=== PATIENT | male | born 1990 | race Native Hawaiian/Other Pacific Islander ===

== ENCOUNTER 2016-09-29 13:42 | Emergency (ER) | payer OTHER ==
[~2016-09-29] VITALS: Ht 188 cm; Wt 99.8 kg
[2016-09-29 14:38] LABS: URINE BILIRUBIN NEGATIVE (Negative); URINE BLOOD NEGATIVE (Negative); URINE COLOR YELLOW; URINE GLUCOSE-RANDOM* NEGATIVE (Negative); URINE KETONES NEGATIVE (Negative); URINE NITRITE NEGATIVE (Negative); URINE PROTEIN (DIPSTICK) NEGATIVE (Negative); URINE SPECIFIC GRAVITY <= 1.005 (1.003-1.035); URINE UROBILINOGEN 0.2 E.U./dl (0.2-1.0)
[2016-09-29] MEDS ORDERED: VENTOLIN HFA 1818 GM INH (14:46)
[2016-09-29 14:52] LABS: MCH 28.9 pg (26.0-34.0); MCHC 33.7 g/dL (28.0-37.0); MCV 85.7 fL (80.0-100.0); RBC 2.17 mil/uL (4.50-6.00); RDW 14.7 % (10.5-14.5)
[2016-09-29 14:56] LABS: MANUAL DIFF YES; WBC 1.9 thou/uL (4.0-11.0)
[2016-09-29 14:57] LABS: HEMATOCRIT 18.6 % (42.0-52.0); HEMOGLOBIN 6.3 gm/dL (14.0-18.0); PLATELET COUNT 71 thou/uL (150-400)
[2016-09-29 14:58] LABS: CALCIUM 7.3 mg/dL (8.5-10.1); CREATININE 0.8 mg/dL (0.7-1.3); POTASSIUM 3.1 mmol/L (3.5-5.1)
[2016-09-29 15:04] LABS: ALBUMIN 3.4 g/dL (3.4-5.0); TOTAL BILIRUBIN 0.4 mg/dL (<0.1-1.0); TOTAL PROTEIN 6.6 g/dL (6.4-8.2)
[2016-09-29 15:15] LABS: ABSOLUTE NEUTROPHILS 2.8 thou/uL (1.4-8.2); BASOPHILS 1.1 % (0.0-2.0); HEMATOCRIT 41.9 % (42.0-52.0); LYMPHOCYTES 29.8 % (24.0-44.0); MCH 28.4 pg (26.0-34.0); MCHC 33.8 g/dL (28.0-37.0); MONOCYTES 7.3 % (1.0-8.0); POLYS 57.8 % (36.0-66.0); RBC 4.99 mil/uL (4.50-6.00); WBC 4.8 thou/uL (4.0-11.0)
[2016-09-29 15:16] LABS: HEMOGLOBIN 14.2 gm/dL (14.0-18.0); MANUAL DIFF NO; PLATELET COUNT 163 thou/uL (150-400)
[2016-09-29 15:32] LABS: TOTAL CELL COUNT 100
[2016-09-29 15:33] LABS: ABSOLUTE NEUTROPHILS 1.2 thou/uL (1.4-8.2)
[2016-09-29] MEDS ORDERED: PHENERGAN 25 MG25 M1 PO (15:40)
[2016-09-29] MEDS ORDERED: AMOXICILLIN 50500 MG PO (15:41)
[2016-09-29 16:10] VITALS: BP 124/76
== END 2016-09-29 15:43 | disposition home or self-care (01) ==
LOC: ER 13:42
PROVIDERS: Nurse Practitioner Family
DX: R11.2 Nausea with vomiting, unspecified (principal); K04.7 Periapical abscess without sinus; J06.9 Acute upper respiratory infection, unspecified; E87.6 Hypokalemia; F10.99 Alcohol use, unspecified with unspecified alcohol-induced disorder

== ENCOUNTER 2017-07-11 17:39 | Emergency (ER) | payer OTHER ==
[~2017-07-11] VITALS: Ht 190.5 cm; Wt 117.9 kg
--- NOTE | ~2017-07-11 | EKG ---
[address] [address] [facility] [place] [address] ELECTROCARDIOGRAM REPORT Name: GEETAGUEVARA Room #: REG DEWAYNE Browne#: [id number] Admission: 07/11/17 Attend Phys: Discharge: Date of : 89 Report #: [id number] THIS REPORT FOR: //name// [facility] ED Test Date: 2017-07-11 Test Time: 19:56:50 Pat Name: GUEVARA CONNOR Department: Room: Gender: Funeral Attendant: [id number] : 1990 Requested By: Tamika Maria Order Number: [id number] MD: Mark Matute Measurements Intervals [place] Rate: 61 P: 25 OR: 148 QRS: 46 QRSD: 98 T: 14 QT: 421 QTc: 424 Interpretive Statements Sinus rhythm ST elev, probable normal early repol pattern No previous ECG available for comparison Electronically Signed On 07-11-2017 22:01:23 CDT by Mark Matute [email or web address] <ELECTRONICALLY SIGNED> By: Mark Matute MD 07/11/172200 55 55 Mark Matute MD /MATY
[~2017-07-11 17:39] MED LIST: AMOXICILLIN 50500 MG PO; PHENERGAN 25 MG25 M1 PO; VENTOLIN HFA 1818 GM INH
[2017-07-11 19:49] LABS: ABSOLUTE NEUTROPHILS 5.3 thou/uL (1.4-8.2); EOSINOPHILS 2.8 % (0.0-3.0); HEMATOCRIT 44.2 % (42.0-52.0); HEMOGLOBIN 15.3 gm/dL (14.0-18.0); LYMPHOCYTES 23.5 % (24.0-44.0); MCH 30.2 pg (26.0-34.0); MCHC 34.6 g/dL (28.0-37.0); MCV 87.4 fL (80.0-100.0); MONOCYTES 8.5 % (1.0-8.0); PLATELET COUNT 174 thou/uL (150-400); POLYS 64.2 % (36.0-66.0); RBC 5.06 mil/uL (4.50-6.00); RDW 13.9 % (10.5-14.5); WBC 8.2 thou/uL (4.0-11.0)
[2017-07-11 19:57] LABS: CALCIUM 9.3 mg/dL (8.5-10.1); CREATININE 0.9 mg/dL (0.7-1.3); POTASSIUM 3.3 mmol/L (3.5-5.1)
[2017-07-11 21:25] VITALS: BP 124/82
== END 2017-07-11 21:27 | disposition home or self-care (01) ==
LOC: ER 17:39
PROVIDERS: Physician Assistant
DX: F41.9 Anxiety disorder, unspecified (principal); J00 Acute nasopharyngitis [common cold]; F41.0 Panic disorder [episodic paroxysmal anxiety]; J45.909 Unspecified asthma, uncomplicated

== ENCOUNTER 2017-10-11 00:37 | Emergency (ER) | payer OTHER ==
[~2017-10-11] VITALS: Ht 190.5 cm; Wt 113.4 kg
[2017-10-11 00:46] VITALS: BP 151/105
[2017-10-11 00:59] LABS: ABSOLUTE NEUTROPHILS 3.7 thou/uL (1.4-8.2); BASOPHILS 1.1 % (0.0-2.0); EOSINOPHILS 4.6 % (0.0-3.0); HEMATOCRIT 46.2 % (42.0-52.0); HEMOGLOBIN 16.2 gm/dL (14.0-18.0); MCH 30.6 pg (26.0-34.0); MCV 87.6 fL (80.0-100.0); MONOCYTES 8.6 % (1.0-8.0); PLATELET COUNT 175 thou/uL (150-400); POLYS 52.7 % (36.0-66.0); RBC 5.27 mil/uL (4.50-6.00); RDW 13.1 % (10.5-14.5)
[2017-10-11] MEDS ORDERED: ASMANEX110 MC1 INH (01:01)
[2017-10-11] MEDS ORDERED: ZYRTEC10 M5 PO (01:01)
[2017-10-11 01:05] LABS: CALCIUM 8.1 mg/dL (8.5-10.1)
[2017-10-11 01:11] LABS: ALBUMIN 3.8 g/dL (3.4-5.0); TOTAL BILIRUBIN 0.9 mg/dL (<0.1-1.0); TOTAL PROTEIN 7.2 g/dL (6.4-8.2)
== END 2017-10-11 01:42 | disposition home or self-care (01) ==
LOC: ER 00:37
PROVIDERS: Emergency Medicine
DX: F41.9 Anxiety disorder, unspecified (principal); J45.909 Unspecified asthma, uncomplicated

== ENCOUNTER 2020-09-11 16:07 | Emergency (ER) | payer OTHER ==
[~2020-09-11] VITALS: Ht 190.5 cm; Wt 136.1 kg
[~2020-09-11 16:07] MED LIST changes: +ASMANEX110 MC1 INH; +ZYRTEC10 M5 PO
[2020-09-11 17:23] VITALS: BP 132/86
[2020-09-11 17:39] LABS: ABSOLUTE NEUTROPHILS 4.9 thou/uL (1.4-8.2); EOSINOPHILS 3.8 % (0.0-3.0); HEMATOCRIT 45.1 % (42.0-52.0); HEMOGLOBIN 15.8 gm/dL (14.0-18.0); LYMPHOCYTES 27.9 % (24.0-44.0); MCV 88.7 fL (80.0-100.0); MONOCYTES 5.9 % (1.0-8.0); PLATELET COUNT 170 thou/uL (150-400); POLYS 61.4 % (36.0-66.0); RBC 5.09 mil/uL (4.50-6.00); RDW 13.3 % (10.5-14.5)
[2020-09-11 17:44] LABS: POTASSIUM 3.9 mmol/L (3.5-5.1)
[2020-09-11 18:34] LABS: TOTAL BILIRUBIN 0.3 mg/dL (0.2-1.0)
[2020-09-11 18:39] LABS: CALCIUM 8.9 mg/dL (8.5-10.1); CREATININE 1.3 mg/dL (0.7-1.3)
[2020-09-11 18:40] LABS: ALBUMIN 4.2 g/dL (3.4-5.0); TOTAL PROTEIN 7.2 g/dL (6.4-8.2)
[2020-09-11] MEDS ORDERED: DOXYCYCLINE 10100 MG PO (20:16)
--- NOTE | 2020-09-12 07:23 | EKG ---
[address] [address] [place] [address] ELECTROCARDIOGRAM REPORT Name: GUEVARA CONNOR Room #: DEP DEWAYNE Browne#: [id number] Admission: 09/11/20 Attend Phys: Discharge: 09/11/20 Date of : [birth year] Report #: [id number] [facility] ED Test Date: 2020-09-11 Test Time: 17:20:03 Pat Name: GUEVARA CONNOR Department: Room: Gender: M Stoker Installer: DIANNA : 1990 Requested By: Sandie Molina Order Number: [id number] MD: Sam Rivas Measurements Intervals [place] Rate: 86 P: 40 IN: 149 QRS: 56 QRSD: 92 T: 2 QT: 332 QTc: 397 Interpretive Statements Sinus rhythm J Point elev, probable normal early repol pattern Compared to ECG 07/11/2017 19:56:50 No significant changes Electronically Signed On 09-12-2020 7:23:49 CDT by Sam Rivas [email or web address] <ELECTRONICALLY SIGNED> By: Sam Rivas MD, [facility] 09/12/20 0723 1720 1720 Sam Rivas MD, FACC /EPI
== END 2020-09-11 20:45 | disposition home or self-care (01) ==
LOC: ER 16:07
PROVIDERS: Physician Assistant
DX: K11.5 Sialolithiasis (principal); J18.9 Pneumonia, unspecified organism; F41.9 Anxiety disorder, unspecified; J45.909 Unspecified asthma, uncomplicated; Z20.822 Contact with and (suspected) exposure to COVID-19; Z91.09 Other allergy status, other than to drugs and biological substances; Z79.51 Long term (current) use of inhaled steroids; Z79.899 Other long term (current) drug therapy

== ENCOUNTER 2021-03-18 08:54 | Emergency (ER) | payer OTHER ==
[~2021-03-18] VITALS: Ht 190.5 cm; Wt 136.1 kg
[~2021-03-18 08:54] MED LIST changes: +DOXYCYCLINE 10100 MG PO
[2021-03-18] MEDS ORDERED: DOXYCYCLINE 10100 MG PO (11:14)
[2021-03-18 11:26] VITALS: BP 134/86
== END 2021-03-18 11:30 | disposition home or self-care (01) ==
LOC: ER 08:54
DX: J40 Bronchitis, not specified as acute or chronic (principal); J03.90 Acute tonsillitis, unspecified; F41.9 Anxiety disorder, unspecified; Z79.899 Other long term (current) drug therapy

== ENCOUNTER 2021-03-28 11:28 | Emergency (ER) | payer OTHER ==
[~2021-03-28] VITALS: Ht 190.5 cm; Wt 136.1 kg
[2021-03-28] MEDS ORDERED: TESSALON PERLE100 MG PO (13:13)
[2021-03-28] MEDS ORDERED: PREDNISONE50 MG PO (13:13)
[2021-03-28] MEDS ORDERED: PROAIR HFA8.5 GM INH (13:13)
[2021-03-28 13:24] VITALS: BP 137/95
== END 2021-03-28 13:24 | disposition home or self-care (01) ==
LOC: ER 11:28
DX: R05.9 Cough, unspecified (principal); F41.9 Anxiety disorder, unspecified; J45.909 Unspecified asthma, uncomplicated; Z79.899 Other long term (current) drug therapy